=== PATIENT | female | born 1990 | race Caucasian/White ===

== ENCOUNTER 2017-01-19 18:26 | Emergency (ER) | payer SELFPAY ==
[2017-01-19 18:37] VITALS: BP 131/88
== END 2017-01-19 19:18 | disposition other institution (70) ==
LOC: ED 18:26
DX: S01.21XA Laceration without foreign body of nose, initial encounter (principal); F15.10 Other stimulant abuse, uncomplicated; F10.10 Alcohol abuse, uncomplicated; X58.XXXA Exposure to other specified factors, initial encounter; Y93.89 Activity, other specified; Y99.8 Other external cause status; Y92.89 Other specified places as the place of occurrence of the external cause

== ENCOUNTER 2017-01-19 18:26 | Emergency (ER) | payer OTHER | END 2017-01-19 19:18 | disposition other institution (70) | LOC: ED 18:26 | DX: Z02.89 Encounter for other administrative examinations (principal) ==

== ENCOUNTER 2019-09-27 21:09 | Emergency (ER) | payer SELFPAY ==
[~2019-09-27] VITALS: Ht 160 cm; Wt 49.9 kg
[2019-09-27 21:13] VITALS: Ht 160 cm; Wt 49.9 kg
[2019-09-28 04:13] VITALS: BP 90/47
== END 2019-09-28 04:13 | disposition home or self-care (01) ==
LOC: ED 21:09
DX: S01.511A Laceration without foreign body of lip, initial encounter (principal); S01.112A Laceration without foreign body of left eyelid and periocular area, initial encounter; T43.621A Poisoning by amphetamines, accidental (unintentional), initial encounter; W22.8XXA Striking against or struck by other objects, initial encounter; Y93.89 Activity, other specified; Y92.89 Other specified places as the place of occurrence of the external cause; Y99.8 Other external cause status
CPT/HCPCS: J3490